=== PATIENT | male | born 1945 | race Caucasian/White ===

== ENCOUNTER 2020-01-23 20:23 | Emergency (ER) | payer MEDICARE, BC ==
[~2020-01-23] VITALS: Ht 165 cm; Wt 77.0 kg
--- NOTE | 2020-01-23 20:29 | ED Integumentary General ---
General Stated Complaint: HAND INJ History of Present Illness Date Seen by Provider: Jan 23, 2020 Time Seen by Provider: 20:29 Initial Comments 74-year-old male presents with a skin tear on the back of his left hand. Patient reports that yesterday evening around 5 PM he lifted up his hand and caught an edge of some metal. He comes in today because when I took the bandage off there was could've a bit of a tear. He suffered no other injuries. Is not actively bleeding. He denies any other systemic complaints Allergies and Home Medications Allergies Coded Allergies: No Known Drug Allergies (Unverified , 01/23/20) Patient Home Medication List Home Medication List Reviewed: Yes Review of Systems Review of Systems Constitutional: see HPI EENTM: see HPI Respiratory: no symptoms reported Cardiovascular: no symptoms reported Gastrointestinal: no symptoms reported Skin: see HPI Past Luajhel-Sepvvn-Gwekrk Hx Past Med/Social Hx: Reviewed Nursing Past Med/Soc Hx Patient Social History Recent Foreign Travel: No Contact w/Someone Who Travel: No Physical Exam Vital Signs Vital Signs - First Documented 01/23/20 20:27 Temp 36.8 Pulse 68 Resp 16 B/P (MAP) 185/87 (119) Pulse Ox 95 O2 Delivery Room Air Capillary Refill : General Appearance: WD/WN, no apparent distress Neck: full range of motion, supple Cardiovascular: normal peripheral pulses, regular rate, rhythm Respiratory: lungs clear, normal breath sounds Extremities: normal range of motion, non-tender Neurologic/Psychiatric: no motor/sensory deficits, normal mood/affect, oriented x 3 Skin: other (irregular skin tear, back of left hand ) Progress/Results/Core Measures Results/Orders My Orders Orders - LAWRENCE,ANUJ L DO Dipht,Pertuss(Acell),Tet Adult (Boostrix (01/23/20 20:45) Vital Signs/I&O 01/23/20 20:27 Temp 36.8 Pulse 68 Resp 16 B/P (MAP) 185/87 (119) Pulse Ox 95 O2 Delivery Room Air Departure Impression Primary Impression: Skin tear of left hand without complication Qualified Codes: S61.412A - Laceration without foreign body of left hand, initial encounter Disposition: 01 HOME, SELF-CARE Condition: Stable Departure-Patient Inst. Patient Instructions: SKIN AVULSION Add. Discharge Instructions: Keep covered with clean dry dressing. Follow-up with your primary care provider in 2-3 days for recheck of symptoms and continuation of care ANUJ LAWRENCE DO Jan 23, 2020 20:29
--- OUTSIDE RECORDS SUMMARY | 2020-01-23 20:29 | XMS REPORT | Continuity of Care Document ---
Author Organization Unknown Address Unknown Phone Unavailable Allergies There is no data. Medications There is no data. Problems There is no data. Procedures There is no data. Results Test Result Range LIPID PANEL - 02/02/19 08:15 CHOLESTEROL, TOTAL 200 mg/dL <200 HDL CHOLESTEROL 37 mg/dL >40 TRIGLYCERIDES 117 mg/dL <150 LDL-CHOLESTEROL 140 mg/dL (calc) NRG CHOL/HDLC RATIO 5.4 (calc) <5.0 NON HDL CHOLESTEROL 163 mg/dL (calc) <13 0 CMP - 02/02/19 08:15 GLUCOSE 105 mg/dL 65-99 UREA NITROGEN (BUN) 20 mg/dL 7-25 CREATININE 1.24 mg/dL 0.70-1.18 eGFR NON-AFR. ESTONIAN 57 mL/min/1.73m2 > OR = 60 eGFR 65 mL/min/1.73m2 > OR = 60 BUN/CREATININE RATIO 16 (calc) 6-22 SODIUM 140 mmol/L 135-146 POTASSIUM 4.5 mmol/L 3.5-5.3 CHLORIDE 105 mmol/L 98-110 CARBON DIOXIDE 28 mmol/L 20-32 CALCIUM 9.1 mg/dL 8.6-10.3 PROTEIN, TOTAL 6.9 g/dL 6.1-8.1 ALBUMIN 4.0 g/dL 3.6-5.1 GLOBULIN 2.9 g/dL (calc) 1.9-3.7 ALBUMIN/GLOBULIN RATIO 1.4 (calc) 1.0-2. 5 BILIRUBIN, TOTAL 0.9 mg/dL 0.2-1.2 ALKALINE PHOSPHATASE 83 U/L 40-115 AST 16 U/L 10-35 ALT 14 U/L 9-46 CBC w/MANUAL DIFF - 02/02/19 08:15 WHITE BLOOD CELL COUNT 5.9 Thousand/uL 3 .8-10.8 RED BLOOD CELL COUNT 5.17 Million/uL 4.2 0-5.80 HEMOGLOBIN 16.1 g/dL 13.2-17.1 HEMATOCRIT 48.5 % 38.5-50.0 MCV 93.8 fL 80.0-100.0 MCH 31.1 pg 27.0-33.0 MCHC 33.2 g/dL 32.0-36.0 RDW 12.7 % 11.0-15.0 PLATELET COUNT 241 Thousand/uL 140-400 MPV 9.9 fL 7.5-12.5 ABSOLUTE NEUTROPHILS 3269 cells/uL 1500- 7800 ABSOLUTE MONOCYTES 407 cells/uL 200-950 ABSOLUTE EOSINOPHILS 0 cells/uL 15-500 ABSOLUTE BASOPHILS 177 cells/uL 0-200 NEUTROPHILS 55.4 % NRG LYMPHOCYTES 34.7 % NRG MONOCYTES 6.9 % NRG EOSINOPHILS 0 % NRG BASOPHILS 3.0 % NRG ABSOLUTE LYMPHOCYTES 2047 cells/uL 850-3 900 PLATELET ESTIMATION ADEQUATE ADEQUATE Encounters ACCT No. Visit Date/Time Discharge Status Pt. Type Provider Facility Loc./Unit Complaint [id number] 07/15/2019 13:00:00 07/15/2019 23:59: 59 [facility] [id number] 02/02/2019 08:00:00 Document Registration [id number] 01/23/2020 20:25:[address] Emergency ANUJ LAWRENCE DO Via [facility] ER FS HAND INJ
[2020-01-23] MEDS ORDERED: TETANUS,DIPTH,PERTUSS P/F (BOOSTRIX) 0.5 ML VIAL IM ONE (20:45)
[2020-01-23 20:51] VITALS: BP 185/87
== END 2020-01-23 20:52 | disposition home or self-care (01) ==
LOC: EDUNIT# 20:23 → ER FS 20:25
DX: S61.412A Laceration without foreign body of left hand, initial encounter (principal); Z23 Encounter for immunization; W23.1XXA Caught, crushed, jammed, or pinched between stationary objects, initial encounter
CPT/HCPCS: 90715; 99284